=== PATIENT | male | born 1975 | race Caucasian/White ===

== ENCOUNTER 2019-12-28 09:09 | Emergency (ER) | payer BC ==
[~2019-12-28] VITALS: Ht 172.7 cm; Wt 111.1 kg
[~2019-12-28 09:09] MED LIST: ACETAMINOPHEN-1 EAC1 PO
[2019-12-28 09:51] LABS: URINE BILIRUBIN NEGATIVE (Negative); URINE BLOOD NEGATIVE (Negative); URINE CLARITY CLEAR; URINE COLOR YELLOW; URINE GLUCOSE-RANDOM* NEGATIVE (Negative); URINE KETONES NEGATIVE (Negative); URINE LEUKOCYTES-REFLEX NEGATIVE (Negative); URINE NITRITE-REFLEX NEGATIVE (Negative); URINE PROTEIN (DIPSTICK) NEGATIVE (Negative); URINE UROBILINOGEN 0.2 E.U./dl (0.2-1.0)
[2019-12-28 10:08] LABS: ABSOLUTE NEUTROPHILS 5.6 thou/uL (1.4-8.2); BASOPHILS 0.9 % (0.0-2.0); EOSINOPHILS 3.7 % (0.0-3.0); HEMATOCRIT 45.6 % (42.0-52.0); HEMOGLOBIN 15.7 gm/dL (14.0-18.0); LYMPHOCYTES 24.7 % (24.0-44.0); MCH 30.4 pg (26.0-34.0); MCHC 34.4 g/dL (28.0-37.0); MCV 88.3 fL (80.0-100.0); MONOCYTES 9.9 % (1.0-8.0); PLATELET COUNT 254 thou/uL (150-400); POLYS 60.8 % (36.0-66.0); RBC 5.16 mil/uL (4.50-6.00); RDW 13.5 % (10.5-14.5); WBC 9.2 thou/uL (4.0-11.0)
[2019-12-28 10:19] LABS: ANION GAP 6 mmol/L (7-16); BUN 15 mg/dL (7-18); CALCIUM 8.9 mg/dL (8.5-10.1); CHLORIDE 105 mmol/L (98-107); CO2 30 mmol/L (21-32); GLUCOSE 90 mg/dL (74-106); POTASSIUM 4.3 mmol/L (3.5-5.1); SODIUM 141 mmol/L (136-145)
[2019-12-28 10:26] LABS: ALBUMIN 3.8 g/dL (3.4-5.0); DIRECT BILIRUBIN < 0.1 mg/dL (<0.1-0.2); LIPASE 269 U/L (73-393); SGOT 16 U/L (15-37); SGPT 24 U/L (30-65); TOTAL BILIRUBIN 0.5 mg/dL (0.2-1.0); TOTAL PROTEIN 7.7 g/dL (6.4-8.2)
[2019-12-28 11:48] VITALS: BP 115/65
== END 2019-12-28 11:48 | disposition home or self-care (01) ==
LOC: ER 09:09
PROVIDERS: Emergency Medicine
DX: R10.84 Generalized abdominal pain (principal); R42 Dizziness and giddiness; K21.9 Gastro-esophageal reflux disease without esophagitis